=== PATIENT | female | born 1955 | race African-American/Black ===

== ENCOUNTER 2021-02-01 06:15 | Inpatient (IN) | payer MEDICARE ==
[~2021-02-01] VITALS: Ht 175.3 cm; Wt 70.4 kg
[~2021-02-01 06:15] MED LIST: AMLO5TAB88 PO; ATOR80TA PO; COR3 PO; FURO20TA4 MT; LOSA50TA41 PO
[2021-02-01 08:19] LABS: HEMATOCRIT 40.5 % (36.0-48.0); HEMOGLOBIN 13.3 g/dL (12.0-16.0); MEAN CORPUSCULAR HEMOGLOBIN 30.8 pg (28.0-32.0); MEAN CORPUSCULAR VOLUME 93.8 fL (81.0-99.0); PLATELET 199 x1000/uL (130-400); RED BLOOD CELL COUNT 4.32 mill/uL (4.2-5.4); RED CELL DISTRIBUTION WIDTH 13.6 % (11.6-14.6)
[2021-02-01 08:26] LABS: CHLORIDE 111 mEq/L (98-107)
[2021-02-01 08:30] LABS: INR 1.1; PROTHROMBIN TIME 11.4 sec (9.6-11.0)
[2021-02-01] MEDS ORDERED: SACU1TAB PO (08:40)
[2021-02-01] MEDS ORDERED: LIDOCAINE HCL 1% 20ML VIAL (Pyxis) INJ ONE (10:21)
[2021-02-01] MEDS ORDERED: IODIXANOL 320MG/ML 100 ML BOTTLE IV ONE ×2 (10:22→10:27)
[2021-02-01] MEDS ORDERED: DOPAMINE 400MG/250ML PREMIX 250 ML IV ONE (10:32)
[2021-02-01] MEDS ORDERED: HYDROMORPHONE HCL/PF 2MG/ML (OR) ONE (10:41)
[2021-02-01] MEDS ORDERED: DEXAMETHASONE 4MG/ML 1ML VIAL ONE (10:45)
[2021-02-01] MEDS ORDERED: CEFAZOLIN SODIUM 1000MG/VIAL ONE (10:45)
[2021-02-01] MEDS ORDERED: GENTAMICIN/NS IRRIGATION 500 ML IR ONE (11:13)
[2021-02-01] MEDS ORDERED: GENTAMICIN SULF 40MG/ML 2ML VIAL ONE (11:14)
[2021-02-01] MEDS ORDERED: HYDROCODONE/ACETAMINOPHEN 5/325MG TABLET PO PRN (12:45)
[2021-02-01] MEDS ORDERED: ONDANSETRON HCL 4MG/2ML INJ IV PRN ×2 (13:00→18:45)
[2021-02-01] MEDS ORDERED: MEPERIDINE HCL/PF 25MG/ML CPJ IV PRN (13:00)
[2021-02-01] MEDS ORDERED: HYDROMORPHONE HCL/PF 2MG/ML CPJ IV PRN (13:00)
[2021-02-01] MEDS ORDERED: MIDAZOLAM HCL 5 MG/5 ML VIAL ONE (13:45)
[2021-02-01] MEDS ORDERED: FENTANYL CITRATE/PF 50MCG/ML 5ML VIAL ONE (13:45)
[2021-02-01 15:45] VITALS: BP 149/71
[2021-02-01 18:00] VITALS: BP 135/97
[2021-02-01 18:15] VITALS: BP 149/71
[2021-02-01] MEDS ORDERED: NALOXONE HCL 0.4MG/ML VIAL IV PRN (19:00)
[2021-02-01 20:00] VITALS: BP 140/78
[2021-02-01] MEDS: CARVEDILOL 3.125 MG TABLET PO SCH (20:44)
[2021-02-01] MEDS: AMLODIPINE 5MG TABLET PO SCH (20:45)
[2021-02-01 20:49] LABS: HEPATITIS B SURFACE ANTIGEN NEGATIVE
[2021-02-01 21:19] LABS: HEPATITIS A AB IGM NEGATIVE (NEGATIVE)
[2021-02-01 21:59] VITALS: BP 153/73
[2021-02-02] VITALS (10 sets, daily range): BP systolic 111–148; BP diastolic 39–83
[2021-02-02 07:38] LABS: BASOPHILS % 0.1 % (0.0-2.0); HEMATOCRIT. 38.8 % (36.0-48.0); HEMOGLOBIN. 12.7 g/dL (12.0-16.0); MEAN CORPUSCULAR HEMOGLOBIN 30.6 pg (28.0-32.0); MEAN CORPUSCULAR VOLUME 93.5 fL (81.0-99.0); MEAN PLATELET VOLUME 8.5 fl (7.4-10.4); MONOCYTES % 11.4 % (2.0-8.0); NEUTROPHILS % 75.5 % (40.0-76.0); PLATELET 193 x1000/uL (130-400); RED BLOOD CELL COUNT 4.15 mill/uL (4.2-5.4); RED CELL DISTRIBUTION WIDTH 13.5 % (11.6-14.6)
[2021-02-02 07:43] LABS: CHLORIDE 110 mEq/L (98-107)
[2021-02-02] MEDS ORDERED: FUROSEMIDE 20MG TABLET PO SCH (09:00)
[2021-02-02] MEDS: CARVEDILOL 3.125 MG TABLET PO SCH (09:23)
[2021-02-02] MEDS: AMLODIPINE 5MG TABLET PO SCH (09:23)
[2021-02-02] MEDS ORDERED: ACETAMINOPHEN 650MG/20.3ML UDC PO PRN (17:00)
== END 2021-02-02 20:22 | disposition home or self-care (01) | DRG 225 ==
LOC: CCL 06:15 → CVICU 14:00 → 3WST 17:55
PROVIDERS: ADMIT Internal Medicine Clinical Cardiac Electrophysiology; ATTEND Internal Medicine Clinical Cardiac Electrophysiology
PROC: 0JH608Z Insertion of Defibrillator Generator into Chest Subcutaneous Tissue and Fascia, Open Approach (ICD-10-PCS; principal; 2021-02-01)
PROC: 02H63KZ Insertion of Defibrillator Lead into Right Atrium, Percutaneous Approach (ICD-10-PCS; 2021-02-01)
PROC: 4A023N6 Measurement of Cardiac Sampling and Pressure, Right Heart, Percutaneous Approach (ICD-10-PCS; 2021-02-01)
PROC: 02HK3KZ Insertion of Defibrillator Lead into Right Ventricle, Percutaneous Approach (ICD-10-PCS; 2021-02-01)
PROC: B517YZZ Fluoroscopy of Left Subclavian Vein using Other Contrast (ICD-10-PCS; 2021-02-01)
PROC: 02HP32Z Insertion of Monitoring Device into Pulmonary Trunk, Percutaneous Approach (ICD-10-PCS; 2021-02-01)
DX: I47.2 Ventricular tachycardia (principal); I42.0 Dilated cardiomyopathy; I50.22 Chronic systolic (congestive) heart failure; I49.5 Sick sinus syndrome; I11.0 Hypertensive heart disease with heart failure; I25.10 Atherosclerotic heart disease of native coronary artery without angina pectoris; E78.5 Hyperlipidemia, unspecified; E78.00 Pure hypercholesterolemia, unspecified; Z86.73 Personal history of transient ischemic attack (TIA), and cerebral infarction without residual deficits; R55 Syncope and collapse
CPT/HCPCS: 33249; 36415; 71045; 75820; 80048; 85025; 85027; 86703; 86705; 86709; 86803; 87340; 93005; 93451; 93640; C1721; C1893; C1898; C1899; J0690; J1100; J1170; J1265; J1580; J1644; J2250; J2405; J3010; J3490; Q9967; A4315

== ENCOUNTER 2021-02-21 14:24 | Emergency (ER) | payer MEDICARE ==
[~2021-02-21] VITALS: Ht 172.7 cm; Wt 71.0 kg
[~2021-02-21 14:24] MED LIST changes: -COR3 PO; -LOSA50TA41 PO; +SACU1TAB PO
[2021-02-21 14:55] VITALS: BP 121/51
[2021-02-21] MEDS ORDERED: AMOX-424 MT (15:21)
== END 2021-02-21 15:37 | disposition home or self-care (01) ==
LOC: ER 14:24
DX: M79.674 Pain in right toe(s) (principal); Z98.890 Other specified postprocedural states
CPT/HCPCS: 99281